=== PATIENT | female | born 1995 | race African-American/Black ===

== ENCOUNTER 2019-12-22 17:34 | Emergency (ER) | payer OTHER ==
[~2019-12-22] VITALS: Ht 165.1 cm; Wt 100.0 kg
[2019-12-22 18:14] VITALS: BP 125/82
== END 2019-12-22 19:20 | disposition home or self-care (01) ==
LOC: EMS 17:36
DX: R05 Cough (principal); R09.81 Nasal congestion; M79.10 Myalgia, unspecified site; I10 Essential (primary) hypertension; Z20.828 Contact with and (suspected) exposure to other viral communicable diseases
CPT/HCPCS: 87635